=== PATIENT | female | born 1980 | race Caucasian/White ===

== ENCOUNTER 2018-10-24 09:39 | Emergency (ER) | payer MEDICAID, SELFPAY ==
[2018-10-24 09:42] VITALS: BP 123/100; PULSE 113; RESP 17; TEMP 36.7; O2SAT 93; BMI 18.3
[2018-10-24 10:08] VITALS: BP 120/83; PULSE 106; RESP 16; O2SAT 98
--- NOTE | 2018-10-24 10:08 | EKG12_ITS ---
Test Reason : ANXIETY Blood Pressure : / mmHG Vent. Rate : 097 BPM Atrial Rate : 097 BPM P-R Int : 142 ms QRS Dur : 076 ms QT Int : 334 ms P-R-T Axes : 083 078 057 degrees QTc Int : 424 ms Normal sinus rhythm Septal infarct , age undetermined Abnormal ECG Confirmed by MARJORIE ALTMAN, TARIK ([id number]), editorial writer ELAINE LANDA ([id number]) on 10/26/2018 1:45:47 PM Referred By: MIRIAM Confirmed By:PATRICK AMADOR MD
[2018-10-24] MEDS: LORazepam 2 MG/ML Syringe IM (10:28)
[2018-10-24 11:12] LABS: Absolute Lymphocyte Count 3.38 X10^3/uL (0.83-4.51); Absolute Neutrophil Count 6.1 X10^3/uL (2.0-7.7); Basophil# 0.04 X10^3/uL; Basophil% 0.4 % (0-1); Eosinophil# 0.08 X10^3/uL; Eosinophils% 0.8 % (0-5); Hematocrit 41.8 % (37-47); Hemoglobin 14.2 g/dL (12.0-15.0); Lymphocyte # 3.38 X10^3/ul (4.0); Lymphocyte % 32.8 % (19-41); Mean Corpuscular Hgb 29.6 pg (27.0-32.0); Mean Corpuscular Volume 87.1 fL (81-99); Mean Platelet Vol. 9.1 fl (6.2-12.0); Monocyte% 6.8 % (0-10); NRBC Flagged by Analyzer 0 % (0-5); Neutrophil # 6.08 X10^3/uL (2.7-7.7); Platelet Count 286 K/mm3 (150-450); White Blood Count 10.3 K/mm3 (4.4-11.0)
[2018-10-24 11:36] LABS: Anion Gap 6 (5-15); BUN 20 mg/dL (7-18); BUN/Creat Ratio 25.1 RATIO (10-20); Calcium,Total 9.7 mg/dL (8.5-10.1); Chloride 110 mmol/L (98-107); EST Glomerular Filtration Rate 86 mL/min (>60); Est Glom Filt Rate - Afr Amer 104 mL/min (>60); Estimated Creatinine Clearance 75.26 ml/min; Glucose 89 mg/dL (74-106); Potassium 3.9 mmol/L (3.5-5.1); Sodium Level 139 mmol/L (136-145)
[2018-10-24 11:37] LABS: Internal QC Validated? YES +Cl - CLEAR BKGD; Pregnancy, Serum, hCG Quali. NEGATIVE Negative
[2018-10-24 11:46] LABS: Bacteria 0 SEEN /hpf (None Seen); Mucous, Urine 0 SEEN /hpf (<or=2+); Red Blood Cells-Urine 0 SEEN /hpf (0-5); White Blood Cells 0 SEEN /hpf (0-5)
[2018-10-24 11:48] LABS: Color, Urine Yellow (Yellow); Glucose, Dipstick Normal (Normal); Ketone-Dipstick Negative (Negative); Leukocyte Esterase-Dipstick Negative /ul (Negative); Nitrite-Dipstick Negative (Negative); Occult Blood-Urine 150 /ul (Negative); Protein-Dipstick Negative (Negative); Urine Bilirubin Dipstick Negative (Negative); Urine Clarity Clear (Clear); Urine Urobilinogen Normal (Normal)
[2018-10-24 11:55] LABS: Squamous Epithelial Cells - UA 5-10 SEEN /hpf (5-10)
[2018-10-24 12:06] VITALS: RESP 16
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
[2018-10-24 12:19] LABS: Amphetamine Urine VISTA POSITIVE (<1000 ng/mL); Barbiturate Urine VISTA NEGATIVE (< 200 ng/mL); Benzodiazepine Urine VISTA NEGATIVE (< 200 ng/mL); Cocaine Urine VISTA NEGATIVE (< 300 ng/mL); Ecstacy Urine VISTA NEGATIVE (< 500 ng/mL); Methadone Urine VISTA NEGATIVE (< 300 ng/mL); PCP Urine VISTA NEGATIVE (< 25 ng/mL); THC Urine VISTA POSITIVE (< 50 ng/mL); Vista UDS pH Range 7
--- NOTE | 2018-10-24 12:40 | CM.ED ---
SOCIAL WORK REFERRAL FAXED AND CALLED TO [facility], SPOKE WITH BOBO. REFERRAL TO BE REVIEWED AND WORKER STATES WILL GET BACK TO THIS WORKER. CHERYL TOMLIN, LIFESTYLE CONSULTANT, MANAGER INDUSTRIAL.
--- NOTE | 2018-10-24 12:57 | ED.RN ---
PT RESTING QUIETLY IN BED WITH EYES CLOSED, NO SIGNS OF DISTRESS.
--- NOTE | 2018-10-24 13:37 | ED.RN ---
EAMON ZAMORA CALLED, STATES IF YOU NEED SOMEONE TO RELEASE FAYE TO- I'LL TAKE CUSTODY. CALLER INFORMED PT SLEEPING AT THIS TIME. CALLER'S RETURN NUMBER [phone]
--- NOTE | 2018-10-24 13:48 | CM.ED ---
SOCIAL WORK RECEIVED CALL FROM BOBO WITH [facility]. PATIENT ACCEPTED BY DR. TREJO TO THE 1500 UNIT. NURSE TO CALL REPORT TO . UPDATED STAFF. CHERYL TOMLIN, COURT WORKER, DIGITAL CAMPAIGN MANAGER.
--- NOTE | 2018-10-24 13:52 | NURSING ---
ACCEPTED AT [facility]
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
[2018-10-24 14:16] VITALS: BP 118/70; PULSE 87; RESP 16; O2SAT 99
--- NOTE | 2018-10-24 14:18 | NURSING ---
CALLED [facility], ETA IS WITHIN THE HOUR
--- NOTE | 2018-10-24 15:20 | ED.RN ---
ATTEMPTED TO CALL NURSE TO NURSE REPORT X4, NO NURSES AVAILABLE TOO BUSY. GAVE NUMBER TO CALL BACK FOR REPORT, ADVISED PERSON ON PHONE PT WAS ON HER WAY.
[2018-10-24] MEDS: Haloperidol Lactate 5 MG/ML Vial IM (16:00)
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
== END 2018-10-24 15:16 ==
LOC: ED 11:36
PROVIDERS: Emergency Provider Emergency Medicine
DX: F31.9 Bipolar disorder, unspecified (principal); F29 Unspecified psychosis not due to a substance or known physiological condition; F22 Delusional disorders; F43.10 Post-traumatic stress disorder, unspecified; F41.9 Anxiety disorder, unspecified; J44.9 Chronic obstructive pulmonary disease, unspecified; R56.9 Unspecified convulsions; M79.7 Fibromyalgia; Z72.0 Tobacco use; Z59.0 Homelessness; Z79.899 Other long term (current) drug therapy
CPT/HCPCS: 80048; 80307; 80320; 81001; 84484; 84703; 85025; 93005; 96372; 99282; G0480

== ENCOUNTER 2019-03-09 16:07 | Emergency (ER) | payer MEDICAID, SELFPAY ==
[2019-03-09] VITALS (7 sets, daily range): BP systolic 118–133; BP diastolic 65–93; PULSE 69–116; RESP 11–23; TEMP 36.8; O2SAT 94–100; BMI 21.6
--- NOTE | 2019-03-09 16:57 | EKG12_ITS ---
Test Reason : SUICIDAL Blood Pressure : / mmHG Vent. Rate : 105 BPM Atrial Rate : 105 BPM P-R Int : 154 ms QRS Dur : 086 ms QT Int : 344 ms P-R-T Axes : 070 076 034 degrees QTc Int : 454 ms Sinus tachycardia Otherwise normal ECG Confirmed by CHELE ALTMAN, EDDIE ([id number]), editorial cartoonist ELAINE LANDA ([id number]) on 03/12/2019 8:32:05 AM Referred By: NARGIS Confirmed By:EDDIE ELAINE MD
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
[2019-03-09 17:22] LABS: Absolute Lymphocyte Count 3.15 X10^3/uL (0.83-4.51); Absolute Neutrophil Count 6.9 X10^3/uL (2.0-7.7); Basophil# 0.04 X10^3/uL; Basophil% 0.4 % (0-1); Eosinophil# 0.09 X10^3/uL; Eosinophils% 0.8 % (0-5); Hematocrit 40.2 % (37-47); Hemoglobin 13.3 g/dL (12.0-15.0); Lymphocyte # 3.15 X10^3/ul (4.0); Lymphocyte % 29.1 % (19-41); Mean Corp Hgb Conc 33.1 g/dL (32-36); Mean Corpuscular Hgb 29.1 pg (27.0-32.0); Mean Platelet Vol. 8.9 fl (6.2-12.0); Monocyte# 0.57 X10^3/uL; Monocyte% 5.3 % (0-10); NRBC Flagged by Analyzer 0 % (0-5); Neutrophil # 6.93 X10^3/uL (2.7-7.7); Neutrophil % 64.1 % (47-70); Platelet Count 311 K/mm3 (150-450); RBC Distribution Width CV 13.5 % (11.6-14.6); RBC Distribution Width SD 43.1 fl (35.1-43.9); Red Blood Count 4.57 M/mm3 (4.2-5.4); White Blood Count 10.8 K/mm3 (4.4-11.0)
[2019-03-09 17:33] LABS: Internal QC Validated? YES +Cl - CLEAR BKGD; Pregnancy, Serum, hCG Quali. NEGATIVE Negative
[2019-03-09 17:34] LABS: Alcohol, Blood (Medical)-Serum < 3.0 mg/dL
[2019-03-09 17:38] LABS: ALB/GLOB Ratio 1.1 RATIO (0.9-2.4); AST(SGOT) 14 U/L (15-37); Alanine Aminotransfer ALT/SGPT 26 U/L (13-56); Alkaline Phosphatase 93 U/L (45-117); Anion Gap 8 (5-15); BUN 15 mg/dL (7-18); BUN/Creat Ratio 24.4 RATIO (10-20); Calcium,Total 9.4 mg/dL (8.5-10.1); Chloride 108 mmol/L (98-107); Creatinine, Serum 0.61 mg/dL (0.55-1.02); EST Glomerular Filtration Rate 115 mL/min (>60); Est Glom Filt Rate - Afr Amer 140 mL/min (>60); Estimated Creatinine Clearance 112.52 ml/min; Globulin 3.6 g/dL (2.2-4.2); Glucose 94 mg/dL (74-106); Potassium 3.5 mmol/L (3.5-5.1); Protein, Total 7.6 g/dL (6.4-8.2); Sodium Level 139 mmol/L (136-145)
[2019-03-09] MEDS: LORazepam 2 MG/ML Syringe 1 MG IV (18:01)
[2019-03-09] MEDS: Pregabalin 50 MG Capsule 200 MG PO (18:03)
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
--- NOTE | 2019-03-09 19:01 | ED.RN ---
B[facility] FORMER came to do exam and pt changed her mind to have ROSANA exam. pt still wants treatment for STD
[2019-03-09 19:20] LABS: Amphetamine Urine VISTA POSITIVE (<1000 ng/mL); Barbiturate Urine VISTA NEGATIVE (< 200 ng/mL); Benzodiazepine Urine VISTA NEGATIVE (< 200 ng/mL); Cocaine Urine VISTA NEGATIVE (< 300 ng/mL); Ecstacy Urine VISTA NEGATIVE (< 500 ng/mL); Methadone Urine VISTA NEGATIVE (< 300 ng/mL); PCP Urine VISTA NEGATIVE (< 25 ng/mL); THC Urine VISTA POSITIVE (< 50 ng/mL); Vista UDS pH Range 7
--- NOTE | 2019-03-09 19:41 | CM.ED ---
Social Work SANE nurse coming to complete assessment. When SANE nurse went to speak with patient, patient now declining assessment stating to the nurse that there is nothing down there and there is nothing to be collected. SANE nurse reporting that patient is presenting with flight of ideas and unable to complete assessment unless patient is wanting this completed. SANE assessment is not to be completed per patient request. Collaborating with medical team, plan is for psychiatric placement for stability. Keshawn Ratliff MSW, BEN
--- NOTE | 2019-03-09 19:58 | CM.ED ---
Social Work Patient medically cleared. Telephone call to [facility], intake. Referral faxed. They do accept patient insurance. Pending approval. Keshawn COFFMAN, BEN
--- NOTE | 2019-03-09 20:52 | CM.ED ---
Social Work Telephone call from [facility], patient has been accepted. [facility] to be faxed and then they will call with admitting information. [facility] faxed. Keshawn COFFMAN, BEN
--- NOTE | 2019-03-09 21:47 | CM.ED ---
Social Work Telephone call from [facility]. Admitting doctor: Dr. Ambrocio. Dual Diagnosis unit: 108A. Nurse to nurse report: [phone]. Updated nursing staff. Updated patient. All agreeable to plan. Keshawn COFFMAN, BEN
--- NOTE | 2019-03-09 23:42 | ED.RN ---
mother was attempted to be called to be updated on pt status. message was left with call back information.
== END 2019-03-09 23:43 ==
PROVIDERS: Emergency Provider Physician Assistant Medical
DX: F31.9 Bipolar disorder, unspecified (principal); F43.10 Post-traumatic stress disorder, unspecified; F19.11 Other psychoactive substance abuse, in remission; F17.200 Nicotine dependence, unspecified, uncomplicated; Z88.0 Allergy status to penicillin; Z88.5 Allergy status to narcotic agent; Z88.8 Allergy status to other drugs, medicaments and biological substances; F41.9 Anxiety disorder, unspecified
CPT/HCPCS: 80053; 80307; 80320; 84703; 85025; 93005; 96374; 99285; A4216; G0480

== ENCOUNTER 2019-11-28 22:23 | Emergency (ER) | payer MEDICAID, SELFPAY ==
[2019-03-09 16:08] VITALS: BMI 21.6
[2019-11-28 22:25] VITALS: BP 100/65; PULSE 93; RESP 28; TEMP 36.6; O2SAT 99; BMI 21.9
--- NOTE | 2019-11-28 23:01 | EKG12_ITS ---
Test Reason : DYSRHYTHMIA Blood Pressure : / mmHG Vent. Rate : 079 BPM Atrial Rate : 079 BPM P-R Int : 148 ms QRS Dur : 084 ms QT Int : 408 ms P-R-T Axes : 057 076 067 degrees QTc Int : 467 ms Normal sinus rhythm Septal infarct , age undetermined Abnormal ECG Confirmed by MARISA ALTMAN, UGO ([id number]), restaurant expeditor ELAINE LANDA ([id number]) on 12/02/2019 12:50:08 PM Referred By: NABILA Confirmed By:UGO CUNNINGHAM MD
--- NOTE | 2019-11-28 23:02 | ED.DCSUM_ITS ---
History of Present Illness Chief Complaint: Seizure Informant: Patient Narrative: Patient is a 39-year-old female with a past medical history of bipolar, anxiety who presents to the emergency department for multiple episodes of nausea/vomiting. She was treated for an STD today. He states that she had 2 shots and some pills at an outside emergency department. She is very upset on questioning. She states that she feels like she . Her family did do CPR on her after they thought she had a seizure and quit breathing. Patient does not believe that she had a seizure. She is complaining of a headache, chest wall pain, shortness of breath, nausea/vomiting and during hyperventilation she gets numbness in her upper extremities bilaterally. She states that she feels like she is burning up but has not had any fevers. Patient is very agitated and talks about how her boyfriend cheated on her which is the cause for the concern for the STDs. She has been having urinary frequency but denies any dysuria or hematuria. Past Medical History - Allergies and Home Meds Allergies/Adverse Reactions: Allergies amoxicillin Allergy (Verified 11/28/19 22:30) Anaphylaxis Penicillins Allergy (Verified 11/28/19 22:30) Hives ketorolac tromethamine [From Toradol] Adverse Reaction (Verified 11/28/19 22:30) Other morphine Adverse Reaction (Verified 11/28/19 22:30) Other tramadol Adverse Reaction (Verified 11/28/19 22:30) Other Primary Care Physician: Care Physician,No Primary [Primary Care Provider] - 2 Days Prior records reviewed: Yes Past Medical History: - - Bipolar, anxiety/depression Surgical History: - - I&D subcutaneous abscess dorsum left hand Smoking Status: Current every day smoker Review of Systems All systems negative except as indicated General: Denies: Chills, Fever, Sweats Eyes: Denies: Visual changes - bilaterally, Diplopia ENT: Denies: Rhinorrhea, Sore throat Cardiovascular: Reports: Chest pain. Denies: Palpitations Respiratory: Reports: Dyspnea. Denies: Cough Gastrointestinal: Reports: Nausea, Vomiting. Denies: Abdominal pain, Diarrhea Genitourinary: Reports: Frequency. Denies: Dysuria, Hematuria Musculoskeletal: Denies: Back pain, Extremity Pain Skin: Denies: Rash, Wounds Neurological: Reports: Headache. Denies: Weakness, Numbness Physical Exam Vital Signs/Narrative: Vital Signs Temp Pulse Resp BP Pulse Ox 11/28/19 22:25 97.9 F 93 28 H 100/65 99 General: Well nourished, Well developed, No Acute Distress Head: Normocephalic, Atraumatic Eyes: Perrl, EOMI ENT: Moist mucous membranes, No rhinorrhea Neck: Supple, Nontender Cardiovascular: Regular rate, Regular rhythm, No murmurs Respiratory: No distress, CTA bilaterally, Chest tenderness, - - Patient varies between hyperventilating and normal respirations. Abdomen: Soft, Nontender, Nondistended, Normal bowel sounds Back: Nontender, Normal Inspection Extremities: Nontender, No edema. Negative for: Calf Tenderness Skin: Normal color, No rash Neurological: Alert, Oriented x3, Cranial nerves II-XII grossly intact, Normal Strength, Normal Sensation Psychological: Tearful, - - Anxious Diagnostic/Tx/Re-eval - EKG Initial EKG Interpretation: - - Rate of 79 bpm normal sinus rhythm. Normal intervals. Normal axis. Nonspecific ST changes in the anterior leads. No reciprocal changes. No ST depressions. No T wave abnormalities. Prior EKG for comparison was performed on March 092019. This was similar in appearance. - Medical Decision Making Patient presents to the emergency department after family did CPR on her after they thought she quit breathing during a seizure. Patient does not believe she had a seizure. She has a positive review of systems for many things. She is very agitated/anxious. Will check basic lab work along with EKG, chest x-ray. Patient's work-up did not reveal any significant acute abnormality. Troponin is negative. EKG not show any signs of ischemia or arrhythmia. Her chest x-ray did not show any traumatic findings from the chest compressions. She otherwise has been improving throughout ED stay. She is relieved with the news of the lab work finding. She is not as anxious as she was when she initially presented. I do not feel patient actually suffered a cardiac arrest. This most likely related to her seizure-like activity. I did recommend she follow-up with her PCP tomorrow. She does feel comfortable going home at this time. Warning signs and symptoms for which to return to the ED are reviewed with her. She understands and is agreeable this plan. All questions answered. ED Disposition - Plan for ED Patient: Disposition: Home or Assisted Living Diagnosis: Chest wall pain, Seizure-like activity Instructions: ED CHEST PAIN [place] Referrals: Care Physician,No Primary [Primary Care Provider] - 2 Days
[2019-11-28 23:09] LABS: Absolute Neutrophil Count 8.9 X10^3/uL (2.0-7.7); Basophil# 0.03 X10^3/uL; Basophil% 0.3 % (0-1); Eosinophil# 0.01 X10^3/uL; Eosinophils% 0.1 % (0-5); Hematocrit 42.9 % (37-47); Hemoglobin 14.3 g/dL (12.0-15.0); Lymphocyte % 18.7 % (19-41); Mean Corp Hgb Conc 33.3 g/dL (32-36); Mean Corpuscular Hgb 29.2 pg (27.0-32.0); Mean Corpuscular Volume 87.6 fL (81-99); Mean Platelet Vol. 9.2 fl (6.2-12.0); Monocyte# 0.56 X10^3/uL; Monocyte% 4.8 % (0-10); NRBC Flagged by Analyzer 0 % (0-5); Neutrophil # 8.92 X10^3/uL (2.7-7.7); Neutrophil % 75.8 % (47-70); Platelet Count 308 K/mm3 (150-450); RBC Distribution Width CV 13.9 % (11.6-14.6); RBC Distribution Width SD 45.1 fl (35.1-43.9); White Blood Count 11.8 K/mm3 (4.4-11.0)
[2019-11-28 23:16] VITALS: O2SAT 99
--- NOTE | 2019-11-28 23:18 | RAD_ITS ---
HISTORY: patient had 3 minute seizure at home. per ems family thought she was not breathing so they started cpr on her. on ems arrival patient was alert and oriented. ADDITIONAL HISTORY: None provided. EXAMINATION/TECHNIQUE: XR Chest 1 View AP/PA Number of images including paperwork: 1 COMPARISON: None FINDINGS: LUNGS AND PLEURA: No consolidation, mass or pleural effusion. CARDIAC SILHOUETTE: Unremarkable. MEDIASTINUM AND GAYATHRI: Unremarkable. UPPER ABDOMEN: Unremarkable. SKELETON AND SOFT TISSUES: No acute skeletal findings. OTHER DEVICES AND HARDWARE: None. RAD/Chest 1 View (Portable) IMPRESSION: No acute cardiopulmonary abnormality. at [id number] Reported and signed by: Sumi Tenorio MD Electronically Signed: Sumi Tenorio MD at 23:46 EDT Tel , Service support ,
[2019-11-28 23:24] VITALS: BP 106/66; PULSE 81; RESP 28; O2SAT 96
[2019-11-28 23:29] LABS: Anion Gap 12 (5-15); BUN 13 mg/dL (7-18); BUN/Creat Ratio 16.6 RATIO (10-20); Calcium,Total 9.6 mg/dL (8.5-10.1); Chloride 108 mmol/L (98-107); Creatinine, Serum 0.78 mg/dL (0.55-1.02); EST Glomerular Filtration Rate 87 mL/min (>60); Est Glom Filt Rate - Afr Amer 105 mL/min (>60); Estimated Creatinine Clearance 87.13 ml/min; Glucose 103 mg/dL (74-106); Magnesium 1.6 mg/dL (1.6-2.6); Potassium 3.7 mmol/L (3.5-5.1); Sodium Level 141 mmol/L (136-145)
[2019-11-28 23:38] LABS: Bacteria 0 SEEN /hpf (None Seen); Mucous, Urine 0 SEEN /hpf (<or=2+); Red Blood Cells-Urine 0 SEEN /hpf (0-5)
[2019-11-28 23:40] LABS: Color, Urine Yellow (Yellow); Glucose, Dipstick Normal (Normal); Leukocyte Esterase-Dipstick 500 /ul (Negative); Nitrite-Dipstick Negative (Negative); Occult Blood-Urine 10 /ul (Negative); Protein-Dipstick 30 mg/dl (Negative); Urine Bilirubin Dipstick Negative (Negative); Urine Clarity Clear (Clear); Urine Urobilinogen 1 mg/dl (Normal); Urine pH 6.5 (5.0 - 8.0)
[2019-11-28 23:46] LABS: Ketone-Dipstick 150 mg/dl (Negative)
[2019-11-28 23:47] LABS: Internal QC Validated? YES +Cl - CLEAR BKGD; Pregnancy, Urine Negative Negative; Squamous Epithelial Cells - UA 5-10 SEEN /hpf (5-10); White Blood Cells 10-25 SEEN /hpf (0-5)
[2019-11-29] VITALS: BP 108/73; PULSE 70; RESP 12; O2SAT 98
[2019-11-29 00:44] VITALS: BP 104/71; PULSE 71; RESP 16; O2SAT 97
[2019-11-29] MEDS: Acetaminophen 325 MG Tablet 650 MG PO (00:44)
== END 2019-11-29 00:45 | disposition home or self-care (01) ==
PROVIDERS: Emergency Provider Emergency Medicine
DX: R56.9 Unspecified convulsions (principal); R07.89 Other chest pain; F31.9 Bipolar disorder, unspecified; F41.9 Anxiety disorder, unspecified; F17.200 Nicotine dependence, unspecified, uncomplicated
CPT/HCPCS: 71045; 80048; 81001; 81025; 83735; 84484; 85025; 93005; 99285; A4216

== ENCOUNTER 2021-02-01 21:32 | Emergency (ER) | payer MEDICAID, SELFPAY ==
[2021-02-01 21:33] VITALS: BP 109/77; PULSE 94; RESP 18; TEMP 36.4; O2SAT 97; BMI 25.7
--- NOTE | 2021-02-01 23:25 | RAD_ITS ---
STUDY: X-RAY CHEST REASON FOR EXAM: Female, 40 years old patient with COVID infection. TECHNIQUE: Single AP portable view of the chest. COMPARISON: 11/28/2019 FINDINGS: The lungs are clear and hyperexpanded. There is no demonstrated pleural abnormality. Normal size heart. Normal mediastinum and long. Normal visualized pulmonary arteries. Normal visualized aortic arch and descending thoracic aorta. Normal visualized thoracic spine. Normal visualized ribs, clavicles, and shoulders. There is no demonstrated abnormality of the visualized soft tissue structures of the upper abdomen. RAD/Chest 1 View (Portable) IMPRESSION: No radiographic evidence of acute cardiopulmonary disease. Electronically Signed: Shey Andrade MD at 0:26 EST , Service support ,
--- NOTE | 2021-02-01 23:27 | EX.ED.VIS.UR ---
HPI HPI - URI History of Present Illness Chief Complaint: Cough Informant: patient Onset/Context/Timing Onset: Yesterday Context: Gradual Onset Timing: Continuous Current Severity: Mild Maximum Severity: Mild Associated Symptoms Associated Symptoms: Positive for Nasal Congestion, Headache, Myalgias, Nausea, Vomiting and Productive Cough; Negative for Diarrhea, Shortness of Breath and Chest Pain Narrative Narrative: 40-year-old female history of diabetes. Yesterday started having a cough with a headache. Says she had nausea and vomiting. No diarrhea. Subjective fever. Productive cough of yellowish sputum. She denies any hemoptysis. She was vaccinated against Covid with the [place] vaccine about 11 months ago. Prior similar symptoms: No Recent Illness/Hospitalization: No ROS ROS ED Review of Systems ROS Unobtainable: Denies due to encephalopathy Constitutional Constitutional ED: Reports fever(s) and subjective Eyes Eyes: Denies change in vision ENT ENT ED: Reports ear pain; Denies rhinorrhea or sore throat Cardiovascular Cardiovascular: Denies chest pain or palpitations Respiratory/Chest Respiratory/Chest: Reports cough and sputum Gastrointestinal Gastrointestinal: Reports nausea and vomiting; Denies abdominal pain or diarrhea Genitourinary Genitourinary ED: Denies dysuria Musculoskeletal Musculoskeletal: Reports myalgias Integumentary Denies rash Neurologic Neurologic: Reports headache(s) Psychiatric Psychiatric: Denies depression Endocrine Endocrinology: Denies polyuria Hematologic/Lymphatic Hematologic/Lymphatic: Denies easy bruising Allergic/Immunologic Allergic/Immunologic ED: Denies urticaria PFSH PFSH Medical History Anxiety and depression Bipolar 1 disorder Chronic back pain COPD (chronic obstructive pulmonary disease) Epilepsy Fibromyalgia Kidney stones PTSD (post-traumatic stress disorder) Home Medications pregabalin [Lyrica] 200 mg PO TID 12/25/15 [History Last Taken Unknown] sumatriptan succinate [Imitrex] 100 mg PO .X1 PRN PRN MDD 100 12/25/15 [History Last Taken Unknown] lorazepam 0.5 mg tablet 0.5 mg PO BID-TID PRN 07/19/17 [History Last Taken Unknown] ondansetron HCl 4 mg tablet 4 mg PO TID PRN 07/19/17 [History Last Taken Unknown] estradiol 1 mg PO DAILY 03/09/19 [History Last Taken Unknown] olanzapine 20 mg PO QHS 03/09/19 [History Last Taken Unknown] dexamethasone [Decadron] 6 mg PO DAILY #10 tab 02/01/21 [Rx Last Taken Unknown] Allergy/AdvReac Type Severity Reaction Status Date / Time amoxicillin Allergy Anaphylaxis Verified 02/01/21 21:36 Penicillins Allergy Hives Verified 02/01/21 21:36 ketorolac tromethamine AdvReac Other Verified 02/01/21 21:36 [From Toradol] morphine AdvReac Other Verified 02/01/21 21:36 tramadol AdvReac Other Verified 02/01/21 21:36 Family History Father COPD (chronic obstructive pulmonary disease) Kidney disease Heart disease Mother COPD (chronic obstructive pulmonary disease) Heart disease Hypertension Grandfather Heart disease Grandmother Heart disease Kidney disease Surgical History History of tubal ligation Social History Smoking Status: Current every day smoker tobacco type: cigarettes Tobacco: How many years used: 27 alcohol intake: never what type of physical activity do you participate in: walking frequency: 5-6 times per week EXAM Physical Exam Narrative Exam Narrative: Middle-aged female no acute distress. Vital signs stable afebrile. Pulse ox 97% on room air no signs hypoxia. HEENT exam unremarkable. Moist remembers. Neck nontender no lymphadenopathy. Lungs clear to auscultation bilaterally. Heart regular rhythm no murmur rate about 95. Abdomen soft nontender. Moving all 4 extremities. No edema. Neurologically awake and alert no focal motor deficits. Const Vital Signs: 02/01/21 21:33 02/01/21 22:53 Temperature 97.5 F L Temperature Source Temporal Pulse Rate 94 Respiratory Rate 18 Respiratory Effort Normal Non-Labored Respiratory Depth Normal Respiratory Pattern Normal Blood Pressure 109/77 Blood Pressure Mean 87 Pulse Ox 97 Oxygen Delivery Method Room Air Positive well nourished and well developed; Negative for obese, cachectic or contractures General Appearance ED: well developed and NAD; Negative for cachectic, contractures, cyanotic, diaphoretic or pallor Nutritional Appearance: Negative for cachectic or obese HEENT Reports moist mucous membranes normocephalic External Ear: external ears normal Eyes PERRL and EOMs intact bilaterally Neck no lymphadenopathy, supple, no meningeal signs and no JVD General: Negative for anterior neck swelling or lymphadenopathy Resp normal respiratory effort and clear to auscultation bilaterally Auscultation: Negative for rales, rhonchi or wheezes Cardio S1 normal heart sound, S2 normal heart sound and no murmurs Rate: regular rate Rhythm: regular rhythm GI non-tender, non-distended and no masses Inspection: Negative for abdominal distention Auscultation: normoactive bowel sounds; Negative for hyperactive bowel sounds or hypoactive bowel sounds Palpation: soft; Negative for tender or guarding Back/Spine no CVA tenderness Extremity normal to inspection and full ROM General Extremety ED: Negative for cyanosis or tenderness General Extremity: Negative for cyanosis Neuro oriented x3 Sensorium / Orientation: alert, oriented to person, oriented to place and oriented to time; Negative for orientation impaired, lethargic or stuporous Motor Exam: strength 5/5 throughout Psych mental status grossly normal Mood & Affect: Negative for depressed or tearful Skin General Skin Exam: Negative for jaundice or pallor Lesions: no lesions Rashes: no rashes MDM MDM MDM Narrative Medical decision making narrative: 40-year-old Covid positive patient. Exam is benign. Patient be discharged home. Repeat exam patient is doing well at 11:48 PM. I went over her test results with her. She'll be discharged home. Lab Data Attestation: I reviewed the patient's lab results. Lab results narrative: Rapid Covid antigen positive. Radiography Diagnostic Testing: Chest x-ray, portable, single view interpreted by myself shows no acute abnormality. Normal cardiac silhouette. No infiltrates. No pneumonia. Discharge Plan Triage Chief Complaint: Cough ED Provider: Sean Nguyen Dx/Rx/DC Orders Clinical Impression: COVID-19 Instructions: Human Coronaviruses Prescriptions: New dexamethasone [Decadron] 6 mg tablet 6 mg PO DAILY Qty: 10 RF: 0 No Action lorazepam 0.5 mg tablet 0.5 mg PO BID-TID PRN (Reason: Anxiety) RF: 0 ondansetron HCl [Zofran] 4 mg tablet 4 mg PO TID PRN (Reason: Nausea) RF: 0 pregabalin [Lyrica] 200 MG capsule 200 mg PO TID RF: 0 sumatriptan succinate [Imitrex] 100 MG tablet 100 mg PO .X1 PRN MDD 100 PRN (Reason: Headache) RF: 0 estradiol 1 MG tablet 1 mg PO DAILY RF: 0 olanzapine 20 MG tablet 20 mg PO QHS RF: 0 Primary Care Provider: Care Physician,No Primary Referrals: Neela Cline MD [STAFF PHYSICIAN] - 1 Week if not improving Care Physician,No Primary [Primary Care Provider] - Activity Restrictions/Additional Instructions: Plenty of fluids and rest. Follow-up with your doctor if not improving. Return if feeling a lot worse. Decadron daily to decrease inflammation in your lungs and help your breathing. This is a steroid it may increase your blood sugar she'll need to watch them closely. Alternate Tylenol and Motrin for any fevers. Disposition Disposition: Home, Self Care
== END 2021-02-02 00:02 | disposition home or self-care (01) ==
PROVIDERS: Emergency Provider Emergency Medicine
DX: U07.1 COVID-19 (principal); J44.9 Chronic obstructive pulmonary disease, unspecified; M79.7 Fibromyalgia; G40.909 Epilepsy, unspecified, not intractable, without status epilepticus; F41.9 Anxiety disorder, unspecified; F17.210 Nicotine dependence, cigarettes, uncomplicated; Z79.899 Other long term (current) drug therapy
CPT/HCPCS: 71045; 87426; 99282